=== PATIENT | female | born 1995 ===

== ENCOUNTER 2019-07-30 21:32 | Emergency (ER) | payer SELFPAY ==
--- NOTE | 2019-07-30 21:36 | EDM.PDOC ---
ED HPI GENERAL MEDICAL PROBLEM - General Chief Complaint: RECORD CLERK Problem Stated Complaint: SPOTTING AT 9 WEEKS Time Seen by Provider: 07/30/19 21:36 Source of Information: Reports: Patient - History of Present Illness INITIAL COMMENTS - FREE TEXT/NARRATIVE: HISTORY AND PHYSICAL: History of present illness: [Patient presents approximately 9 weeks with , she has complained of spotting, previous miscarriage last October at 12-13 weeks, previously she does have a 3-year-old pliable child or in by at 41 weeks Today she has some mild cramping does not appear in any distress as noted drinking tonight after 7 PM which has resolved no fever nausea vomiting chills sweats no shortness breath headache dizziness palpitation no bowel or urine symptoms no low back pain fluid leakage or vaginal discharge ] Review of systems: As per history of present illness and below otherwise all systems reviewed and negative. Past medical history: As per history of present illness and as reviewed below otherwise noncontributory. Surgical history: As per history of present illness and as reviewed below otherwise noncontributory. Social history: No reported history of drug or alcohol abuse. Family history: As per history of present illness and as reviewed below otherwise noncontributory. Physical exam: HEENT: Atraumatic, normocephalic, pupils reactive, negative for conjunctival pallor or scleral icterus, mucous membranes moist, throat clear, neck supple, nontender, trachea midline. Lungs: Clear to auscultation, breath sounds equal bilaterally, chest nontender. Heart: S1S2, regular, negative for clicks, rubs, or JVD. Abdomen: Soft, nondistended, nontender. Negative for masses or hepatosplenomegaly. Negative for costovertebral tenderness. Pelvis: Stable nontender. Genitourinary: External exam within normal limits no mass correlation internal exam no edgar blood in the vaginal vault blood-tinged on glove ,cervix is closed no mass scar or lesion Rectal: Deferred. Extremities: Atraumatic, negative for cords or calf pain. Neurovascular unremarkable. Neuro: Awake, alert, oriented. Cranial nerves II through XII unremarkable. Cerebellum unremarkable. Motor and sensory unremarkable throughout. Exam nonfocal. Diagnostics: [CBC CMP UA hCG Quant ABO type Ultrasound OB Limited ] Therapeutics: [Continue current Follow-up with Ob noThing per vagina ] Impression: [Threatened O pos LMP 05/21/19 EDC 03/20/20 by ultrasound 6 week 4 day by ultrasound heart rate 100 Cervix closed Definitive disposition and diagnosis as appropriate pending reevaluation and review of above. Abdomen Pain Score (Numeric/FACES): 6 - Related Data Allergies Allergy/AdvReac Type Severity Reaction Status Date / Time No Known Allergies Allergy Verified 07/30/19 21:43 Home Meds: Home Meds Pnv No.122/Iron/Folic Acid [ Multi Tablet] 1 each PO DAILY 07/30/19 [ History] ED ROS GENERAL - Review of Systems Review Of Systems: See Below ED EXAM, GENERAL - Physical Exam Exam: See Below Course - Vital Signs Last Recorded V/S: Last Vital Signs Temp 97.5 F 07/30/19 21:40 Pulse 77 07/30/19 21:40 Resp 18 07/30/19 21:40 BP 119/69 07/30/19 21:40 Pulse Ox 98 07/30/19 21:40 - Orders/Labs/Meds Orders: Active Orders 24 hr Category Date Time Status COMPREHENSIVE METABOLIC PN,CMP [CHEM] Stat Lab 07/30/19 21:50 Received CULTURE URINE [RM] Stat Lab 07/30/19 21:40 Received HCG QUANTITATIVE [CHEM] Stat Lab 07/30/19 21:50 Received Labs: Laboratory Tests 07/30/19 07/30/19 07/30/19 Range/Units 21:40 21:50 21:50 WBC 9.88 (4.0-11.0) K/uL RBC 4.04 L (4.30-5.90) M/uL Hgb 12.3 (12.0-16.0) g/dL Hct 37.5 (36.0-46.0) % MCV 92.8 (80.0-98.0) fL MCH 30.4 (27.0-32.0) pg MCHC 32.8 (31.0-37.0) g/dL RDW Std Deviation 43.1 (28.0-62.0) fl RDW Coeff of Pradeep 13 (11.0-15.0) % Plt Count 301 (150-400) K/uL MPV 10.60 (7.40-12.00) fL Neut % (Auto) 54.6 (48.0-80.0) % Lymph % (Auto) 36.0 (16.0-40.0) % [place] % (Auto) 7.8 (0.0-15.0) % Eos % (Auto) 1.4 (0.0-7.0) % Baso % (Auto) 0.2 (0.0-1.5) % Neut # (Auto) 5.4 (1.4-5.7) K/uL Lymph # (Auto) 3.6 H (0.6-2.4) K/uL [place] # (Auto) 0.8 (0.0-0.8) K/uL Eos # (Auto) 0.1 (0.0-0.7) K/uL Baso # (Auto) 0.0 (0.0-0.1) K/uL Nucleated RBC % 0.0 /100WBC Nucleated RBCs # 0 K/uL Urine Color YELLOW Urine Appearance CLEAR Urine pH 5.5 (5.0-8.0) Ur Specific [place] >= 1.030 (1.001-1.035) Urine Protein NEGATIVE (NEGATIVE) mg/dL Urine Glucose (UA) NEGATIVE (NEGATIVE) mg/dL Urine Ketones NEGATIVE (NEGATIVE) mg/dL Urine Occult Blood LARGE H (NEGATIVE) Urine Nitrite NEGATIVE (NEGATIVE) Urine Bilirubin NEGATIVE (NEGATIVE) Urine Urobilinogen 0.2 (<2.0) EU/dL Ur Leukocyte Esterase SMALL H (NEGATIVE) Urine RBC 1-2 (0-2/HPF) Urine WBC 1-2 (0-5/HPF) Ur Epithelial Cells OCCASIONAL (NONE-FEW) Urine Bacteria RARE (NEGATIVE) Blood Type O POSITIVE Departure - Departure Time of Disposition: 22:40 Disposition: Home, Self-Care 01 Condition: Good Clinical Impression: Threatened - Discharge Information Referrals: PCP,None [Primary Care Provider] - Forms: ED Department Discharge Additional Instructions: Nothing per vagina and no tampons douching sexual intercourse Return if symptoms persist or worsen Follow-up with OB [facility] [address] [place] [id number] The following information is given to patients seen in the emergency department who are being discharged to home. This information is to outline your options for follow-up care. We provide all patients seen in our emergency department with a follow-up referral. The need for follow-up, as well as the timing and circumstances, are variable depending upon the specifics of your emergency department visit. If you don't have a primary care physician on staff, we will provide you with a referral. We always advise you to contact your personal physician following an emergency department visit to inform them of the circumstance of the visit and for follow-up with them and/or the need for any referrals to a consulting specialist. The emergency department will also refer you to a specialist when appropriate. This referral assures that you have the opportunity for follow-up care with a specialist. All of these measure are taken in an effort to provide you with optimal care, which includes your follow-up. Under all circumstances we always encourage you to contact your private physician who remains a resource for coordinating your care. When calling for follow-up care, please make the office aware that this follow-up is from your recent emergency room visit. If for any reason you are refused follow-up, please contact the [facility] emergency department at and asked to speak to the emergency department charge nurse. - My Orders Last 24 Hours: My Active Orders 07/30/19 21:40 CULTURE URINE [RM] Stat 07/30/19 21:50 COMPREHENSIVE METABOLIC PN,CMP [CHEM] Stat HCG QUANTITATIVE [CHEM] Stat - Assessment/Plan Last 24 Hours: My Active Orders 07/30/19 21:40 CULTURE URINE [RM] Stat 07/30/19 21:50 COMPREHENSIVE METABOLIC PN,CMP [CHEM] Stat HCG QUANTITATIVE [CHEM] Stat
--- NOTE | 2019-07-30 22:25 | US ---
HISTORY: Bleeding COMPARISON: None available of this gestation. TECHNIQUE: Transvaginal ultrasound examination of the early was performed. FINDINGS: A single intrauterine gestational sac is seen with a pole. The crown-rump length measurement of 0.7 cm gives an estimated gestational age of 6 weeks 4 days with an estimated date of delivery of 03/20/2020. This does not correlate well with the LMP of 05/21/2019 which gives a clinical age of 10 weeks 0 days. Regular cardiac activity is seen at 100 BPM. No definite fluid collection is seen adjacent to the gestational sac to suggest a subchorionic hemorrhage. There is no sign of free fluid in the pelvis. A dominant simple cyst is seen in the right ovary measuring up to 1.7 centimeters in diameter, probably a dominant follicular cyst. The ovaries are otherwise normal in appearance. IMPRESSION: Single intrauterine gestation with estimated age of 6 weeks 4 days. This does not correlate well with the clinical age of 10 weeks 0 days. Regular cardiac activity is seen. Dictated by Isael Stokes MD @ Jul 30 2019 10:20PM Signed by Dr. Isael Stokes @ Jul 30 2019 10:24PM
[2019-07-30 22:42] LABS: BLOOD UREA NITROGEN,BUN 13 mg/dL (7.0-18.0); CARBON DIOXIDE,CO2 27.4 mmol/L (21.0-32.0); CHLORIDE,CL 103 mmol/L (98-107); GLUCOSE RANDOM 91 mg/dL (74-106); SODIUM,NA 138 mmol/L (136-145)
== END 2019-07-30 22:50 | disposition home or self-care (01) ==
LOC: MW.ED 21:32
DX: O20.0 Threatened abortion (principal); Z3A.09 9 weeks gestation of pregnancy
CPT/HCPCS: 36415; 76815; 76815-26; 80053; 81001; 84702; 85025; 86900; 86901; 87086; 99284-25